=== PATIENT | female | born 1960 | race Two or more races ===

== ENCOUNTER 2024-07-18 11:34 | Emergency (ER) | payer MEDICARE, MEDICAID ==
[~2024-07-18] VITALS: Ht 162.6 cm; Wt 86.0 kg
--- NOTE | 2024-07-18 12:57 | ED.PDOC ---
History of Present Illness HPI Comments 64 year old female presents to the ED with a chief complaint of picc line removal onset today (07/18/24).Patient states she had a picc line placed on chest, finished 6 weeks of antibiotics. Home health nurse told patient to come to ED for Picc line removal. Patient denies any chest pain, shortness of breath, nausea, vomiting, diarrhea, fever, chills, abdominal pain. No other symptoms or modifying factors present at this time. Chief Complaint: Tube Replacement Time Seen by MD: 12:41 Primary Care Provider: juan pablo Coronel Notes: Medications, Allergies Allergies: Coded Allergies: Codeine (Verified Allergy, Unknown, 07/18/24) Information Source: Patient Mode of Arrival: Ambulatory Severity: Moderate Timing: Hours Duration: Since onset Prehospital treatment: None Past Medical History PAST MEDICAL HISTORY: Denies Surgical History: Denies all surgeries SOCIAL SCIENCE ANALYST History: No Pertinent SOCIAL SCIENCE ANALYST History Family History Family History: Reviewed,noncontributory to illness, No family hx of Cancer, No family hx of DM, No family hx of Heart leonid, No family hx of HTN, No family hx ofKidney leonid, No family hx of Liver leonid, No family hx of Lung leonid, No family hx of Stroke Social History Smoker: Non-Smoker Alcohol: Denies ETOH Use Drugs: Denies Drug Use Lives In: Home Constitutional: reports: others (chest picc line); denies: chills, diaphoresis, fatigue, fever, malaise, sweats, weakness EENTM: denies: blurred vision, double vision, ear bleeding, ear discharge, ear drainage, ear pain, ear ringing, eye pain, eye redness, hearing loss, mouth pain, mouth swelling, nasal discharge, nose bleeding, nose congestion, nose pain, photophobia, tearing, throat pain, throat swelling, voice changes, others Respiratory: denies: cough, hemoptysis, orthopnea, SOB at rest, shortness of breath, SOB with excertion, stridor, wheezing, others Cardiovascular: denies: chest pain, dizzy spells, diaphoresis, Dyspnea on exertion, edema, irregular heart beat, left arm pain, lightheadedness, palpitations, PND, syncope, others Gastrointestinal: denies: abdomen distended, abdominal pain, blood streaked bowels, constipated, diarrhea, dysphagia, difficulty swallowing, hematemesis, melena, nausea, poor appetite, poor fluid intake, rectal bleeding, rectal pain, vomiting, others Genitourinary: denies: abnormal vagina bleeding, burning, dyspareunia, dysuria, flank pain, frequency, hematuria, incontinence, pain, , vagina discharge, urgency, others Neurological: denies: dizziness, fainting, headache, left sided numbness, left sided weakness, numbness, paresthesia, pre-existing deficit, right sided numbness, right sided weakness, seizure, speech problems, tingling, tremors, weakness, others Musculoskeletal: denies: back pain, gout, joint pain, joint swelling, muscle pain, muscle stiffness, neck pain, others Integumetry: denies: bruises, change in color, change in hair/nails, dryness, laceration, lesions, lumps, rash, wounds, others Allergic/Immunocompromised: denies: Difficulty Healing, Frequent Infections, Hives, Itching, others Hematologic/Lymphatic: denies: anemia, blood clots, easy bleeding, easy bruising, swollen glands, others Endocrine: denies: excessive hunger, excessive sweating, excessive thirst, excessive urination, flushing, intolerance to cold, intolerance to heat, unexplained weight gain, unexplained weight loss, others Psychiatric: denies: anxiety, bipolar disorder, depression, hopeless, panic disorder, schizophrenia, sleepless, suicidal, others All Other Systems: Reviewed and Negative Physical Exam General Appearance: No Apparent Distress, Normal HEENT: Normal ENT Inspection, Pharynx Normal, TMs Normal Neck: Full Range of Motion, Non-Tender, Normal, Normal Inspection Respiratory: Chest Non-Tender, Lungs Clear, No Accessory Muscle Use, No Respiratory Distress, Normal Breath Sounds Cardiovascular: No Edema, No JVD, No Murmur, No Gallop, Normal Peripheral Pulses, Regular Rate/Rhythm Breast Exam: Deferred Gastrointestinal: No Organomegaly, Non Tender, No Pulsatile Mass, Normal Bowel Sounds, Soft Genitalia: Deferred Pelvic: Deferred Rectal: Deferred Extremities: No calf tenderness, Normal capillary refill, Normal inspection, Normal range of motion, Non-tender, No pedal edema Musculoskeletal : Apperance: Normal Neurologic: Alert, quality assurance analyst II-XII nml as Tested, No Motor Deficits, Normal Affect, Normal Mood, No Sensory Deficits Cerebellar Function: Normal Reflexes: Normal Skin: Dry, Normal Color, Warm Lymphatic: No Adenopathy Was a procedure done? Was a procedure done?: No Differential Dx Considerations may include: Line malfunction X-Ray, Labs, Meds, VS Vital Signs Date Time Temp Pulse Resp B/P (MAP) Pulse Ox O2 Delivery O2 Flow Rate FiO2 07/18/24 11:49 98.1 82 17 143/53 (83) 98 98.1 [place] [id number] Ph: [phone] DIAGNOSTIC IMAGING Diagnostic Imaging Report : [id number] Signed PATIENT: AFSANEH MCCONNELL ACCT: [id number] UNIT: [id number] : 1960 LOC: ER ROOM / BED: / AGE / SEX: 64 / F ADM STATUS: REG ER SERVICE 1248 ORDERING PHYSICIAN: ADELA DALLAS MD PROCEDURE(s): CXRP - CHEST PORTABLE REASON: picc line placement ORDER NUMBER(s): [id number], ACCESSION NUMBER(s): [id number] AP portable chest HISTORY: picc line placement Comparison: None FINDINGS: There is a PICC line with its tip in the lower 3rd of the superior vena cava. Heart size slightly enlarged. Pacer leads in the right atrium and right ventricle. No infiltrates or effusions IMPRESSION: 1. PICC line catheter tip in the lower 3rd of the superior vena cava ATED BY: MIRIAN REZA MD DICTATED DATE/TIME: 07/18/241315 SIGNED BY: MIRIAN REZA MD SIGNED DATE/TIME: 07/18/241315 CC: Time of 1ST Reevaluation: 13:11 Reevaluation 1ST: Unchanged Patient Education/Counseling: Diagnosis, Treatment, Prognosis Family Education/Counseling: No Family Present Additional Information The following tests were ordered, and results were reviewed by me: SHIVAM chest portable I reviewed and agreed with the following test results read by other providers: SHIVAM chest portable I discussed treatment and results with medical personnel and: patient Comprehensive systems review obtained and negative except for what is stated in the HPI. Departure 1 Departure Time of Disposition: 13:56 (Patient's line was removed and radiology. We will discharge patient home with outpatient follow up) Impression: Primary Impression: Encounter for removal of tunneled central venous catheter (CVC) with port Disposition: 01 HOME / SELF CARE / HOMELESS Condition: Stable Additional Instructions: Your IV line was removed today. Please follow up with the regular doctor Discharged With: Self Critical Care Note Critical Care Time?: No Stability Stability form required: No I personally scribed for ADELA DALLAS MD ([email or web address]) on 07/18/24 at 12:57. Electronically submitted by Gerda Bartholomew ([email or web address]). I personally scribed for ADELA DALLAS MD ([email or web address]) on 07/18/24 at 13:15. Electronically submitted by Gerda Bartholomew ([email or web address]). I personally scribed for ADELA DALLAS MD ([email or web address]) on 07/18/24 at 13:45. Electronically submitted by Gerda Bartholomew ([email or web address]). ADELA DALLAS MD July 18, 2024 12:57
--- NOTE | 2024-07-18 13:18 | DVH ---
AP portable chest HISTORY: picc line placement Comparison: None FINDINGS: There is a PICC line with its tip in the lower 3rd of the superior vena cava. Heart size slightly enlarged. Pacer leads in the right atrium and right ventricle. No infiltrates or effusions IMPRESSION: 1. PICC line catheter tip in the lower 3rd of the superior vena cava
[2024-07-18] MEDS: LIDOCAINE 2%HCL (LOCAL ANESTH.) INJ 10ml MDV ONE (13:32)
[2024-07-18 14:30] VITALS: BP 143/53; PULSE 82; RESP 18; TEMP 98.1; O2SAT 98
== END 2024-07-18 14:31 | disposition home or self-care (01) ==
LOC: ER 11:34
DX: Z45.2 Encounter for adjustment and management of vascular access device (principal); Z88.5 Allergy status to narcotic agent
CPT/HCPCS: 71045; 99283; J2003

== ENCOUNTER 2025-02-23 13:07 | Inpatient (IN) | payer MEDICARE, MEDICAID ==
[~2025-02-23] VITALS: Ht 162.6 cm; Wt 89.0 kg
[2025-02-23] MEDS: SODIUM CHLORIDE 0.9% 500 ML IVB ONE (14:15)
--- NOTE | 2025-02-23 14:28 | ED.PDOC ---
KIRAN Lyons HPI Comments 64y F who presents to the ED for chief complaint of flank pain. Pt states she has been having R sided flank pain for the past 3x days. Pt states the pain is constant, rating the pain 7/10, aching in nature, with no noted exacerbating or relieving factors. Pt has associated headache, nausea, chills diarrhea and dysuria but denies any other symptoms. Pt otherwise has noted temp of 99.6 F and heart rate 102 with otherwise stable vitals. Pt denies any other symptoms at this time. Chief Complaint: Flank Pain Time Seen by MD: 14:24 Primary Care Provider: juan pablo Reviewed notes: Nurses Notes, Medications, Allergies Allergies: Coded Allergies: Codeine (Verified Allergy, Unknown, 07/18/24) Information Source: Patient Mode of Arrival: Ambulatory Brought in by: self Severity: Moderate Inability to void: None Timing: Hours Duration: Since onset Prehospital treatment: None Onset: Spontaneous Symptoms: Dysuria History of: None Location: (R) Flank Modifying factors: None associated signs and symptoms: Nausea, Flank Pain, Dysuria Past Medical History PAST MEDICAL HISTORY: DM, High Lipids, HTN Surgical History (Other): R kidney transplant VEGETABLE CUTTER History: No Pertinent VEGETABLE CUTTER History Family History Family History: Reviewed,noncontributory to illness, No family hx of Heart leonid, No family hx of HTN, No family hx ofKidney leonid, No family hx of Liver leonid, No family hx of Lung leonid, No family hx of Stroke, Family hx of DM, Family hx of Cancer Social History Smoker: Non-Smoker Alcohol: Denies ETOH Use Drugs: Denies Drug Use Lives In: Home Constitutional: reports: chills; denies: diaphoresis, fatigue, fever, malaise, sweats, weakness, others EENTM: denies: blurred vision, double vision, ear bleeding, ear discharge, ear drainage, ear pain, ear ringing, eye pain, eye redness, hearing loss, mouth pain, mouth swelling, nasal discharge, nose bleeding, nose congestion, nose pain, photophobia, tearing, throat pain, throat swelling, voice changes, others Respiratory: denies: cough, hemoptysis, orthopnea, SOB at rest, shortness of breath, SOB with excertion, stridor, wheezing, others Cardiovascular: denies: chest pain, dizzy spells, diaphoresis, Dyspnea on exert ion, edema, irregular heart beat, left arm pain, lightheadedness, palpitations, PND, syncope, others Gastrointestinal: reports: diarrhea, nausea; denies: abdomen distended, abdominal pain, blood streaked bowels, constipated, dysphagia, difficulty swallowing, hematemesis, melena, poor appetite, poor fluid intake, rectal bleeding, rectal pain, vomiting, others Genitourinary: reports: flank pain; denies: abnormal vagina bleeding, burning, dyspareunia, dysuria, frequency, hematuria, incontinence, pain, , vagina discharge, urgency, others Neurological: denies: dizziness, fainting, headache, left sided numbness, left sided weakness, numbness, paresthesia, pre-existing deficit, right sided numbness, right sided weakness, seizure, speech problems, tingling, tremors, weakness, others Musculoskeletal: denies: back pain, gout, joint pain, joint swelling, muscle pa in, muscle stiffness, neck pain, others Integumetry: denies: bruises, change in color, change in hair/nails, dryness, laceration, lesions, lumps, rash, wounds, others Allergic/Immunocompromised: denies: Difficulty Healing, Frequent Infections, Hives, Itching, others Hematologic/Lymphatic: denies: anemia, blood clots, easy bleeding, easy bruising, swollen glands, others Endocrine: denies: excessive hunger, excessive sweating, excessive thirst, excessive urination, flushing, intolerance to cold, intolerance to heat, unexplained weight gain, unexplained weight loss, others Psychiatric: denies: anxiety, bipolar disorder, depression, hopeless, panic disorder, schizophrenia, sleepless, suicidal, others All Other Systems: Reviewed and Negative Physical Exam General Appearance: Moderate Distress HEENT: Normal ENT Inspection, Pharynx Normal, TMs Normal Neck: Full Range of Motion, Non-Tender, Normal, Normal Inspection Respiratory: Chest Non-Tender, Lungs Clear, No Accessory Muscle Use, No Respiratory Distress, Normal Breath Sounds Cardiovascular: No Edema, No JVD, No Murmur, No Gallop, Normal Peripheral Pulses, Regular Rate/Rhythm Breast Exam: Deferred Gastrointestinal: No Organomegaly, Non Tender, No Pulsatile Mass, Normal Bowel Sounds, Soft Genitalia: Deferred Pelvic: Deferred Rectal: Deferred Extremities: No calf tenderness, Normal capillary refill, Normal inspection, Normal range of motion, Non-tender, No pedal edema Musculoskeletal : Apperance: Normal Neurologic: Alert, needle control cheniller II-XII nml as Tested, No Motor Deficits, Normal Affect, Normal Mood, No Sensory Deficits Cerebellar Function: Normal Reflexes: Normal Skin: Dry, Normal Color, Warm Lymphatic: No Adenopathy Was a procedure done? Was a procedure done?: No Differential Diagnosis Kidney stone (Female): Cholelithiasis, Pyelonephritis, Strain, Urinary obstruction, Urolithiasis Urinary Problem (Female): PID, Pyelonephritis, Urinary retention, UTI, Vaginitis X-Ray, Labs, Meds, VS Vital Signs Date Time Temp Pulse Resp B/P (MAP) Pulse Ox O2 Delivery O2 Flow Rate FiO2 02/23/25 16:32 77 17 137/77 02/23/25 16:06 98 18 143/73 02/23/25 16:02 100.0 98 17 143/73 (96) 100 100.0 02/23/25 16:02 98 17 100 Room Air 02/23/25 13:10 99.6 102 22 148/55 98 99.6 Lab Test 02/23/25 16:12 02/23/25 15:50 02/23/25 14:47 Range/Units POC Glucose 441 *H 70-106 mg/dl Urine Color Light-yellow Yellow Urine Clarity Clear Clear Urine pH 5.5 5.0-9.0 Urine Specific [place] 1.020 1.001-1.035 Urine Protein Trace H Negative Urine Ketones Negative Negative Urine Blood 3+ H Negative /uL Urine Nitrite 1+ H Negative Urine Bilirubin Negative Negative Urine Urobilinogen Normal Negative mg/dL Urine Leukocyte Esterase Negative Negative /uL Urine RBC 22 0 - 4 /hpf Urine Microscopic WBC 9 H 0-5 /HPF Urine Squamous Epithelial Cells Mod <5 /hpf Urine Bacteria Few H None Seen /hpf Urine Glucose 4+ H Normal mg/dL White Blood Count 11.5 H 4.4-10.8 10^3/uL Red Blood Count 3.76 L 4.0-5.20 10^6/uL Hemoglobin 10.8 L 12.2-16.2 g/dL Hematocrit 33.7 L 36.0-46.0 % Mean Corpuscular Volume 89.6 80.0-100.0 fL Mean Corpuscular Hemoglobin 28.8 28.0-32.0 pg Mean Corpuscular Hemoglobin Concent 32.1 32.0-36.0 g/dL Red Cell Distribution Width 14.7 H 11.8-14.3 % Platelet Count 206 140-450 10^3/uL Mean Platelet Volume 8.7 6.9-10.8 fL Neutrophils (%) (Auto) 90.5 H 37.0-80.0 % Lymphocytes (%) (Auto) 5.2 L 10.0-50.0 % Monocytes (%) (Auto) 4.1 0.0-12.0 % Eosinophils (%) (Auto) 0.0 0.0-7.0 % Basophils (%) (Auto) 0.2 0.0-2.0 % Neutrophils # (Auto) 10.4 H 1.6-8.6 10 ^3/uL Lymphocytes # (Auto) 0.6 0.4-5.4 10 ^3/uL Monocytes # (Auto) 0.5 0-1.3 10 ^3/uL Eosinophils # (Auto) 0 0-0.8 10 ^3/uL Basophils # (Auto) 0 0-0.2 10 ^3/uL Nucleated Red Blood Cells 0.0 % Sodium Level 128 L 136-145 mmol/L Potassium Level 4.4 3.5-5.1 mmol/L Chloride Level 96 L 98-107 mmol/L Carbon Dioxide Level 21 20-31 mmol/L Anion Gap 11 5-15 Blood Urea Nitrogen 27 H 9-23 mg/dL Creatinine 1.40 H 0.550-1.02 mg/dL Glomerular Filtration Rate Calc 42 >90 mL/min BUN/Creatinine Ratio 19.3 10.0-20.0 Serum Glucose 524 *H 74-106 mg/dL Calcium Level 8.7 8.7-10.4 mg/dL Current Medications Medications (Trade) Dose Ordered Sig/Rhoda Route Start Time Stop Time Status Last Admin Ondansetron HCl (Zofran) 4 mg ONCE ONCE IV 02/23/25 14:15 02/23/25 14:16 DC 02/23/25 16:04 Morphine Sulfate 4 mg ONCE ONCE IV 02/23/25 14:15 02/23/25 14:16 DC 02/23/25 16:06 Sodium Chloride 500 ml @ 500 mls/hr Q1H ONCE IVB 02/23/25 14:15 02/23/25 15:14 DC 02/23/25 14:15 Insulin Human Regular (InsuLIN R) 5 units ONCE ONCE IV 02/23/25 16:00 02/23/25 16:01 DC 02/23/25 16:21 PROCEDURE(s): ABPL - CT AB PEL WO CON-NO ORAL OR IV IMPRESSION: Right lower quadrant transplant kidney without hydronephrosis ; however, there is mild perinephric stranding. This could be infectious / inflammatory. Consider transplant renal ultrasound for further evaluation. IV Hep-Lock was established The patient was given morphine 4 mg IV push for the pain The patient was given Zofran 4 mg IV push for the nausea The patient is hyperglycemic and was given insulin 5 units IV push The patient's glucose serum was 524 The BUN is 27 the creatinine is 1.4 The CBC shows an elevated white blood cell count of 11.5 The urine test is positive for UTI The patient is also being started on Rocephin IV piggyback for the UTI The patient is being admitted Images Reviewed?: Images reviewed and evaluated by me Time of 1ST Reevaluation: 15:00 Reevaluation 1ST: Unchanged Patient Education/Counseling: Diagnosis, Treatment, Prognosis Family Education/Counseling: No Family Present SEPSIS Sepsis Screen Date sepsis recognized/suspect: Feb 23, 2025 Time Sepsis recognized/suspect: 1312 Recent Procedure: No On Antibiotic Therapy: No Respiratory Rate >20: No Heart Rate >90: No Temp<36 C (96.8 F) or >38.3 C: No SBP <90 or MAP <65 mmHG: No New Acute Mental Status Change: No Is the patient on CPAP, BIPAP,: No Physician Orders Ct Ab Pel Wo Con-No Oral Or Iv (02/23/25 14:07) Heplock Iv (02/23/25 14:07) Top Precipitator Operator (02/23/25 14:07) Blood Pressure (02/23/25 14:07) Pulse Oximetry (02/23/25 14:07) Vital Signs Date Time Temp Pulse Resp B/P (MAP) Pulse Ox O2 Delivery O2 Flow Rate FiO2 02/23/25 16:32 77 17 137/77 02/23/25 16:06 98 18 143/73 02/23/25 16:02 100.0 98 17 143/73 (96) 100 100.0 02/23/25 16:02 98 17 100 Room Air 02/23/25 13:10 99.6 102 22 148/55 98 99.6 Laboratory Tests Test 02/23/25 14:47 White Blood Count 11.5 10^3/uL (4.4-10.8) H Medications Medications Dose Ordered Sig/Rhoda Route Start Time Stop Time Status Last Admin Dose Admin Insulin Human Regular 5 units ONCE ONCE IV 02/23/25 16:00 02/23/25 16:01 DC 02/23/25 16:21 Morphine Sulfate 4 mg ONCE ONCE IV 02/23/25 14:15 02/23/25 14:16 DC 02/23/25 16:06 Ondansetron HCl 4 mg ONCE ONCE IV 02/23/25 14:15 02/23/25 14:16 DC 02/23/25 16:04 Sodium Chloride 500 ml @ 500 mls/hr Q1H ONCE IVB 02/23/25 14:15 02/23/25 15:14 DC 02/23/25 14:15 Departure 1 Departure Time of Disposition: 16:54 Impression: Primary Impression: Intractable abdominal pain Additional Impressions: UTI (urinary tract infection) Qualified Codes: N30.00 - Acute cystitis without hematuria Uncontrolled diabetes mellitus Qualified Codes: E13.65 - Other specified diabetes mellitus with hyperglycemia Disposition: ADMITTED INPATIENT Admit to: Med Surg Condition: Fair Critical Care Note Critical Care Time?: No Stability Stability form required: Yes Unstable for transfer: ED Physician Assesment (Clinical assesment) Heart Score Heart Score: Heart Score Response (Comments) Value History N/A 0 EKG N/A 0 Age N/A 0 Risk Factors N/A 0 Troponin N/A 0 Total 0 I personally scribed for DAKOTA SHAW MD ([email or web address]) on 02/23/25 at 14:28. Electronically submitted by Royce Downs ([email or web address]). I personally scribed for DAKOTA SHAW MD ([email or web address]) on 02/23/25 at 15:03. Electronically submitted by Royce Downs ([email or web address]). I personally scribed for DAKOTA SHAW MD ([email or web address]) on 02/23/25 at 15:09. Electronically submitted by Royce Downs ([email or web address]). DAKOTA SHAW MD Feb 23, 2025 14:28
[2025-02-23 14:56] LABS: Hematocrit 33.7 % (36.0-46.0); Hemoglobin 10.8 g/dL (12.2-16.2); Mean Corpuscular Hemoglobin 28.8 pg (28.0-32.0); Mean Corpuscular Volume 89.6 fL (80.0-100.0); Nucleated Red Blood Cells % 0.0 %
--- NOTE | 2025-02-23 14:59 | DVH ---
EXAM: CT CT AB PEL WO CON-NO ORAL OR IV HISTORY: right flank pain Comparison Study: None. Exam Date: 02/23/2025 02:20 PM Radiation Dose Information: CT Dose: CTDI volume is 17 mGy. Dose-length product is 966 mGy*cm TECHNIQUE: Multidetector CT of the abdomen and pelvis was performed. Imaging was performed without IV contrast. Axial, coronal and sagittal multiplanar reformats were obtained from the axial data set by the technologist. FINDINGS: Lack of intravenous contrast compromises evaluation of perfusion and for isodense lesions. Lower chest: Clear. Liver: Postsurgical clips seen adjacent to the liver; correlate for possible liver transplant history. Biliary system: Surgically absent gallbladder Spleen: Unremarkable Pancreas: Diffusely atrophic. Adrenals: Unremarkable. Kidneys and ureters: Severe atrophy of the bilateral [place] kidneys. Right lower quadrant transplant kidney is seen without hydro nephrosis. There is nonspecific mild perinephric stranding. Bowel: No obstruction. Bladder: Unremarkable Reproductive organs: No abnormal mass. Lymph nodes: Unremarkable. Peritoneum: Unremarkable Vessels: Patency not evaluated on this noncontrast study. Bones and soft tissue: No aggressive osseous lesion IMPRESSION: Right lower quadrant transplant kidney without hydronephrosis ; however, there is mild perinephric stranding. This could be infectious / inflammatory. Consider transplant renal ultrasound for further evaluation.
[2025-02-23 15:07] LABS: Potassium 4.4 mmol/L (3.5-5.1)
[2025-02-23 15:08] LABS: Anion Gap 11 (5-15); Calcium 8.7 mg/dL (8.7-10.4); Carbon Dioxide 21 mmol/L (20-31)
[2025-02-23 15:13] LABS: BUN/Creatinine Ratio 19.3 (10.0-20.0)
[2025-02-23 15:19] LABS: Blood Urea Nitrogen 27 mg/dL (9-23); Chloride 96 mmol/L (98-107); Sodium 128 mmol/L (136-145)
[2025-02-23 15:20] LABS: Glucose 524 mg/dL (74-106)
[2025-02-23] MEDS: ONDANSETRON HCL 4 MG/2 ML VIAL IV ONE (16:04)
[2025-02-23] MEDS: MORPHINE SULFATE 4 MG/ML SYR/VIAL IV ONE (16:06)
[2025-02-23 16:17] LABS: Urine Protein, UAD TRACE (Negative)
[2025-02-23] MEDS: InsuLIN REG 1unit/0.01ml Soln (100units/ml) IV ONE (16:21)
--- NOTE | 2025-02-23 17:14 | DVHHP2 ---
Admitting Diagnosis: Abdominal pain History of Present Illness 64y F who presents to the ED for chief complaint of flank pain. Pt states she has been having R sided flank pain for the past 3x days. Pt states the pain is constant, rating the pain 7/10, aching in nature, with no noted exacerbating or relieving factors. Pt has associated headache, nausea, chills diarrhea and dysuria but denies any other symptoms. Pt otherwise has noted temp of 99.6 F and heart rate 102 with otherwise stable vitals. Pt denies any other symptoms at this time. 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 History Family History Family History: Reviewed,noncontributory to illness, No family hx of Heart leonid, No family hx of HTN, No family hx ofKidney leonid, No family hx of Liver leonid, No family hx of Lung leonid, No family hx of Stroke, Family hx of DM, Family hx of Cancer Social History Smoker: Non-Smoker Alcohol: Denies ETOH Use Drugs: Denies Drug Use Lives In: Home Allergies: Coded Allergies: Codeine (Verified Allergy, Unknown, 07/18/24) Current Medications Current Medications Medications (Trade) Dose Ordered Sig/Rhoda Route PRN Reason Start Time Stop Time Status Last Admin Sodium Chloride (Saline Lock Ns) 10 ml Q8HR IV 02/23/25 22:00 UNV Vital Signs Vital Signs Date Time Temp Pulse Resp B/P (MAP) Pulse Ox O2 Delivery O2 Flow Rate FiO2 02/23/25 16:32 77 17 137/77 02/23/25 16:02 100.0 100 100.0 02/23/25 16:02 Room Air Physical Exam Generally 64 years old woman overweight, sitting on chair. Mild distress HEENT-atraumatic normocephalic Heart-regular rate and rhythm Lungs clear to auscultate Abdomen soft, nontender nondistended Musculoskeletal-no edema cyanosis Neuro-AO x3, no deficit SEPSIS Sepsis Screen Date sepsis recognized/suspect: Feb 23, 2025 Time Sepsis recognized/suspect: 1312 Recent Procedure: No On Antibiotic Therapy: No Respiratory Rate >20: No Heart Rate >90: No Temp<36 C (96.8 F) or >38.3 C: No SBP <90 or MAP <65 mmHG: No New Acute Mental Status Change: No Is the patient on CPAP, BIPAP,: No Physician Orders Ct Ab Pel Wo Con-No Oral Or Iv (02/23/25 14:07) Heplock Iv (02/23/25 14:07) Central Office Supervisor (02/23/25 14:07) Blood Pressure (02/23/25 14:07) Pulse Oximetry (02/23/25 14:07) Admit (02/23/25 17:08) Code Status (02/23/25 17:08) Vital Signs .PER UNIT PROTOCOL (02/23/25 17:08) Review Orders With Adm. (02/23/25 17:08) Encourage Activity As Tolerate (02/23/25 17:08) Sodium Chloride Lock (Saline Lock Ns) (02/23/25 22:00) Docusate Sodium Capsule (Colace Capsule) (02/23/25 17:15) Acetaminophen Tablet (Tylenol Tablet) (02/23/25 17:15) Notify Md Of Changes From Base (02/23/25 17:08) Advance Directive (02/23/25 17:08) Patient Condition (02/23/25 17:08) Allergies (02/23/25 17:08) Glucose Blood (Accu-Chek Comfort Curve T (02/23/25 22:00) Mild Sliding Scale (02/23/25 22:00) Dextrose 50% Syringe (02/23/25 17:15) Zosyn Extended Infusion (02/23/25 22:00) *[facility] (02/23/25 17:08) Get List Of Home Medications (02/23/25 17:11) Vital Signs Date Time Temp Pulse Resp B/P (MAP) Pulse Ox O2 Delivery O2 Flow Rate FiO2 02/23/25 16:32 77 17 137/77 02/23/25 16:06 98 18 143/73 02/23/25 16:02 100.0 98 17 143/73 (96) 100 100.0 02/23/25 16:02 98 17 100 Room Air 02/23/25 13:10 99.6 102 22 148/55 98 99.6 Laboratory Tests Test 02/23/25 14:47 White Blood Count 11.5 10^3/uL (4.4-10.8) H Medications Medications Dose Ordered Sig/Rhoda Route Start Time Stop Time Status Last Admin Dose Admin Insulin Human Regular 5 units ONCE ONCE IV 02/23/25 16:00 02/23/25 16:01 DC 02/23/25 16:21 Morphine Sulfate 4 mg ONCE ONCE IV 02/23/25 14:15 02/23/25 14:16 DC 02/23/25 16:06 Ondansetron HCl 4 mg ONCE ONCE IV 02/23/25 14:15 02/23/25 14:16 DC 02/23/25 16:04 Sodium Chloride 500 ml @ 500 mls/hr Q1H ONCE IVB 02/23/25 14:15 02/23/25 15:14 DC 02/23/25 14:15 Results Labs Test 02/23/25 16:12 02/23/25 15:50 02/23/25 14:47 Range/Units POC Glucose 441 *H 70-106 mg/dl Urine Color Light-yellow Yellow Urine Clarity Clear Clear Urine pH 5.5 5.0-9.0 Urine Specific [place] 1.020 1.001-1.035 Urine Protein Trace H Negative Urine Ketones Negative Negative Urine Blood 3+ H Negative /uL Urine Nitrite 1+ H Negative Urine Bilirubin Negative Negative Urine Urobilinogen Normal Negative mg/dL Urine Leukocyte Esterase Negative Negative /uL Urine RBC 22 0 - 4 /hpf Urine Microscopic WBC 9 H 0-5 /HPF Urine Squamous Epithelial Cells Mod <5 /hpf Urine Bacteria Few H None Seen /hpf Urine Glucose 4+ H Normal mg/dL White Blood Count 11.5 H 4.4-10.8 10^3/uL Red Blood Count 3.76 L 4.0-5.20 10^6/uL Hemoglobin 10.8 L 12.2-16.2 g/dL Hematocrit 33.7 L 36.0-46.0 % Mean Corpuscular Volume 89.6 80.0-100.0 fL Mean Corpuscular Hemoglobin 28.8 28.0-32.0 pg Mean Corpuscular Hemoglobin Concent 32.1 32.0-36.0 g/dL Red Cell Distribution Width 14.7 H 11.8-14.3 % Platelet Count 206 140-450 10^3/uL Mean Platelet Volume 8.7 6.9-10.8 fL Neutrophils (%) (Auto) 90.5 H 37.0-80.0 % Lymphocytes (%) (Auto) 5.2 L 10.0-50.0 % Monocytes (%) (Auto) 4.1 0.0-12.0 % Eosinophils (%) (Auto) 0.0 0.0-7.0 % Basophils (%) (Auto) 0.2 0.0-2.0 % Neutrophils # (Auto) 10.4 H 1.6-8.6 10 ^3/uL Lymphocytes # (Auto) 0.6 0.4-5.4 10 ^3/uL Monocytes # (Auto) 0.5 0-1.3 10 ^3/uL Eosinophils # (Auto) 0 0-0.8 10 ^3/uL Basophils # (Auto) 0 0-0.2 10 ^3/uL Nucleated Red Blood Cells 0.0 % Sodium Level 128 L 136-145 mmol/L Potassium Level 4.4 3.5-5.1 mmol/L Chloride Level 96 L 98-107 mmol/L Carbon Dioxide Level 21 20-31 mmol/L Anion Gap 11 5-15 Blood Urea Nitrogen 27 H 9-23 mg/dL Creatinine 1.40 H 0.550-1.02 mg/dL Glomerular Filtration Rate Calc 42 >90 mL/min BUN/Creatinine Ratio 19.3 10.0-20.0 Serum Glucose 524 *H 74-106 mg/dL Calcium Level 8.7 8.7-10.4 mg/dL Primary Diagnosis acute pyelonephritis SAAD on CKD Plan start zosyn for broad spectrum abx check bcx, ucx ivf pain control nephrology consult for saad on ckd home med reconsciliation full code heparin for dvt ppx renal diet no gi ppx Plan discussed with: Patient Date of Service: Feb 23, 2025 Billing Provider: KRISTINA MENDES MD Common Visit Codes: [id number] INP/OBS CARE (HIGH) KRISTINA MENDES MD Feb 23, 2025 17:14
[2025-02-23] MEDS ORDERED: DEXTROSE (50%) 50ML SYRG IV PRN (17:15)
[2025-02-23] MEDS ORDERED: DOCUSATE SOD 100 MG CAP PO PRN (17:15)
[2025-02-23] MEDS: ACETAMINOPHEN 325 MG TAB PO PRN (20:54)
[2025-02-23 21:15] VITALS: BP 148/66; PULSE 87; RESP 20; TEMP 99.8; O2SAT 95
[2025-02-23 21:45] VITALS: BP 148/66; PULSE 87; RESP 20; TEMP 99.8; O2SAT 95
[2025-02-23] MEDS: PIPERACILLIN-TAZOB 3.375GM 100 ML IV SCH (22:52)
[2025-02-23] MEDS: SODIUM CHLOR 0.9% PF (SALINE LOCK) 10ML VIAL/SYR IV SCH (22:52)
[2025-02-23] MEDS: ACCU-CHEK COMFORT CURVE STRIP VI SCH (22:57)
[2025-02-23] MEDS: InsuLIN REG 1unit/0.01ml Soln (100units/ml) SC SCH (22:59)
[2025-02-24] VITALS (8 sets, daily range): BP systolic 146–188; BP diastolic 62–86; PULSE 83–93; RESP 17–19; TEMP 97.7–99.7; O2SAT 20–98
[2025-02-24 06:17] LABS: Hematocrit 32.9 % (36.0-46.0); Hemoglobin 10.7 g/dL (12.2-16.2); Mean Corpuscular Hemoglobin 28.8 pg (28.0-32.0); Mean Corpuscular Volume 88.6 fL (80.0-100.0); Nucleated Red Blood Cells % 0.1 %
[2025-02-24 06:36] LABS: Albumin 3.8 g/dL (3.2-4.8); Anion Gap 12 (5-15); BUN/Creatinine Ratio 21.3 (10.0-20.0); Carbon Dioxide 21 mmol/L (20-31); Chloride 103 mmol/L (98-107); Potassium 4.3 mmol/L (3.5-5.1); Total Protein 6.2 g/dL (5.7-8.2)
[2025-02-24 06:41] LABS: Alanine Aminotransferase 55 U/L (7-40); Alkaline Phosphatase 208 U/L (46-116); Bilirubin, Total 0.3 mg/dL (0.2-1.0); Blood Urea Nitrogen 23 mg/dL (9-23); Calcium 8.4 mg/dL (8.7-10.4); Glucose 212 mg/dL (74-106); Sodium 136 mmol/L (136-145)
--- NOTE | 2025-02-24 13:49 | DVHPN2 ---
Reviewed: Care Plan, H&P, Labs, Medications, Previous Orders, Radiology Changes from previous H/P or p: No Changes Objective Vitals Vital Signs Date Time Temp Pulse Resp B/P (MAP) Pulse Ox O2 Delivery O2 Flow Rate FiO2 02/24/25 09:00 98.9 91 19 148/62 (90) 93 98.9 02/24/25 08:00 Nasal Cannula* 1 24 Intake/Output Intake and Output 02/24/25 07:00 Intake Total 600 ml Balance 600 ml Intake Oral 0 ml IV Total 600 ml # Voids 2 Medications Current Medications Medications Dose Ordered Sig/Rhoda Route Start Time Stop Time Status Last Admin Dose Admin Sodium Chloride 10 ml Q8HR IV 02/23/25 22:00 02/24/25 06:30 10 ML Docusate Sodium 100 mg BIDPRN PRN PO 02/23/25 17:15 Acetaminophen 650 mg Q6HP PRN PO 02/23/25 17:15 02/24/25 06:29 650 MG Diagnostic Test (Pha) 1 strip ACHS 02/23/25 22:00 02/24/25 13:01 1 STRIP Insulin Human Regular ACHS SC 02/23/25 22:00 02/24/25 13:02 6 UNITS Dextrose 50 ml UD PRN IV 02/23/25 17:15 Piperacillin Sod/ Tazobactam Sod 100 ml @ 25 mls/hr Q8HR IV 02/23/25 22:00 02/24/25 06:19 25 MLS/HR Laboratory Results Laboratory Tests 02/24/25 05:40 Chemistry Test 02/23/25 14:47 02/24/25 05:40 Calcium Level 8.7 mg/dL (8.7-10.4) 8.4 mg/dL (8.7-10.4) L Albumin 3.8 g/dL (3.2-4.8) Total Protein 6.2 g/dL (5.7-8.2) LFT Test 02/24/25 05:40 Alanine Aminotransferase (ALT) 55 U/L (7-40) H Alkaline Phosphatase 208 U/L (46-116) H Aspartate Amino Transferase (AST) 64 U/L (13-40) H Total Bilirubin 0.3 mg/dL (0.2-1.0) Urinalysis Test 02/23/25 15:50 Urine Color Light-yellow (Yellow) Urine Clarity Clear (Clear) Urine pH 5.5 (5.0-9.0) Urine Specific [place] 1.020 (1.001-1.035) Urine Protein Trace (Negative) H Urine Ketones Negative (Negative) Urine Blood 3+ /uL (Negative) H Urine Nitrite 1+ (Negative) H Urine Bilirubin Negative (Negative) Urine Urobilinogen Normal mg/dL (Negative) Urine Leukocyte Esterase Negative /uL (Negative) Urine RBC 22 /hpf (0 - 4) Urine Microscopic WBC 9 /HPF (0-5) H Urine Squamous Epithelial Cells Mod /hpf (<5) Urine Bacteria Few /hpf (None Seen) H Urine Glucose 4+ mg/dL (Normal) H Labs and/or images reviewed: Labs reviewed by me, Image(s) reviewed by me Assessment/Plan Assessment/Plan Sepsis secondary to urinary tract infection: Blood cultures urine cultures Rocephin Acute hyperglycemia Uncontrolled diabetes with blood sugar 580: Aggressive insulin sliding scale check A1c Acute pyelonephritis SAAD on CKD History of Renal transplant Time spent 70 minutes Advanced care planning time 20 minutes Patient is full code Plan discussed with: Patient My Orders Orders - ATIYA PAPPAS MD Procedure Category Date Status Time * Wound Consult CONS 02/24/25 Transmitted Hemoglobin A1c LAB 02/24/25 Transmitted 13:39 Ceftriaxone Ivpb PHA 02/25/25 Verified Rocephin 09:00 Ceftriaxone Ivpb PHA 02/24/25 Verified Rocephin 13:45 Date of Service: Feb 24, 2025 Billing Provider: ATIYA PAPPAS MD Common Visit Codes: [id number] CARE 30-74 MIN ATIYA PAPPAS MD Feb 24, 2025 13:49
[2025-02-24] MEDS: SODIUM CHLORIDE 0.9% 1,000 ML IV SCH (15:25)
[2025-02-24] MEDS: InsuLIN REG 1unit/0.01ml Soln (100units/ml) SC SCH ×2 (17:37→22:00)
[2025-02-25] VITALS (8 sets, daily range): BP systolic 146–170; BP diastolic 71–81; PULSE 79–93; RESP 17–18; TEMP 97.7–99.8; O2SAT 92–98
[2025-02-25 06:12] LABS: Hematocrit 33.3 % (36.0-46.0); Hemoglobin 10.8 g/dL (12.2-16.2); Mean Corpuscular Hemoglobin 28.8 pg (28.0-32.0); Mean Corpuscular Volume 88.8 fL (80.0-100.0); Nucleated Red Blood Cells % 0.1 %
[2025-02-25 06:17] LABS: Alanine Aminotransferase 38 U/L (7-40); Calcium 8.8 mg/dL (8.7-10.4); Carbon Dioxide 23 mmol/L (20-31); Chloride 105 mmol/L (98-107)
[2025-02-25 06:18] LABS: Albumin 3.9 g/dL (3.2-4.8); Anion Gap 9 (5-15); BUN/Creatinine Ratio 16.0 (10.0-20.0); Bilirubin, Total 0.3 mg/dL (0.2-1.0); Blood Urea Nitrogen 15 mg/dL (9-23); Potassium 4.1 mmol/L (3.5-5.1); Sodium 137 mmol/L (136-145); Total Protein 6.7 g/dL (5.7-8.2)
[2025-02-25 06:19] LABS: Alkaline Phosphatase 181 U/L (46-116); Glucose 148 mg/dL (74-106)
--- NOTE | 2025-02-25 10:23 | DVHPN2 ---
Reviewed: Care Plan, H&P, Labs, Medications, Previous Orders, Radiology Changes from previous H/P or p: No Changes Objective Vitals Vital Signs Date Time Temp Pulse Resp B/P (MAP) Pulse Ox O2 Delivery O2 Flow Rate FiO2 02/25/25 09:00 99.7 91 17 161/77 (105) 94 99.7 02/25/25 08:05 Room Air* 0 21 Intake/Output Intake and Output 02/25/25 07:00 Intake Total 820 ml Balance 820 ml Intake Oral 770 ml IV Total 50 ml # Voids 10 Medications Current Medications Medications Dose Ordered Sig/Rhoda Route Start Time Stop Time Status Last Admin Dose Admin Sodium Chloride 10 ml Q8HR IV 02/23/25 22:00 02/25/25 05:17 10 ML Docusate Sodium 100 mg BIDPRN PRN PO 02/23/25 17:15 Acetaminophen 650 mg Q6HP PRN PO 02/23/25 17:15 02/25/25 09:21 650 MG Diagnostic Test (Pha) 1 strip ACHS 02/23/25 22:00 02/25/25 06:38 1 STRIP Dextrose 50 ml UD PRN IV 02/23/25 17:15 Ceftriaxone Sodium 50 ml @ 100 mls/hr DAILY@09 IV 02/25/25 09:00 02/25/25 09:13 100 MLS/HR Insulin Human Regular AC SC 02/24/25 17:00 02/25/25 06:38 4 UNITS Insulin Human Regular HS SC 02/24/25 22:00 Sodium Chloride 1,000 ml @ 150 mls/hr Q6H40M IV 02/24/25 14:00 02/24/25 15:25 150 MLS/HR Hydralazine HCl 10 mg Q6HP PRN IV 02/25/25 07:00 Laboratory Results Laboratory Tests 02/25/25 05:16 Chemistry Test 02/25/25 05:16 Albumin 3.9 g/dL (3.2-4.8) Calcium Level 8.8 mg/dL (8.7-10.4) Total Protein 6.7 g/dL (5.7-8.2) LFT Test 02/25/25 05:16 Alanine Aminotransferase (ALT) 38 U/L (7-40) Alkaline Phosphatase 181 U/L (46-116) H Aspartate Amino Transferase (AST) 20 U/L (13-40) Total Bilirubin 0.3 mg/dL (0.2-1.0) Urinalysis Test 02/23/25 15:50 Urine Color Light-yellow (Yellow) Urine Clarity Clear (Clear) Urine pH 5.5 (5.0-9.0) Urine Specific [place] 1.020 (1.001-1.035) Urine Protein Trace (Negative) H Urine Ketones Negative (Negative) Urine Blood 3+ /uL (Negative) H Urine Nitrite 1+ (Negative) H Urine Bilirubin Negative (Negative) Urine Urobilinogen Normal mg/dL (Negative) Urine Leukocyte Esterase Negative /uL (Negative) Urine RBC 22 /hpf (0 - 4) Urine Microscopic WBC 9 /HPF (0-5) H Urine Squamous Epithelial Cells Mod /hpf (<5) Urine Bacteria Few /hpf (None Seen) H Urine Glucose 4+ mg/dL (Normal) H Microbiology Microbiology Date/Time Source Procedure Growth Status 02/23/25 17:34 Blood Blood Culture - Preliminary NO GROWTH AFTER 24 HOURS OF INCUBATION. Resulted Labs and/or images reviewed: Labs reviewed by me, Image(s) reviewed by me Assessment/Plan Assessment/Plan Sepsis secondary to urinary tract infection: Blood cultures negative, urine cultures pending, continue Rocephin Acute hyperglycemia Uncontrolled diabetes with blood sugar 580: Aggressive insulin sliding scale check A1c Acute pyelonephritis SAAD on CKD Accelerated HTN:Nifedepine History of Renal transplant: Mycophenalate, Prednisone, Tacrolimus Time spent 50 minutes Advanced care planning time 20 minutes Patient is full code Plan discussed with: Patient My Orders Orders - ATIYA PAPPAS MD Procedure Category Date Status Time * Wound Consult CONS 02/24/25 Transmitted Ceftriaxone 1gm/50ml PHA 02/25/25 In Process (Rocephin) 09:00 Urine Bacterial GABBI 02/24/25 Logged Culture 13:42 Insulin R (Human) PHA 02/24/25 In Process (Insulin R) 17:00 Insulin R (Human) PHA 02/24/25 In Process (Insulin R) 22:00 Sodium Chloride 0.9% PHA 02/24/25 In Process 14:00 Communication Order ORDERS 02/24/25 Transmitted 13:50 Apply: JOHN 02/24/25 In Process 11:55 Date of Service: Feb 25, 2025 Billing Provider: ATIYA PAPPAS MD Common Visit Codes: [id number] INP/OBS CARE(HIGH) ATIYA PAPPAS MD Feb 25, 2025 10:23
[2025-02-25] MEDS: MYCOPHENOLATE 500 MG TAB PO ONE (11:22)
[2025-02-25] MEDS: TACROLIMUS 1 MG CAP PO ONE (11:23)
--- NOTE | 2025-02-25 13:07 | DVHINCON2 ---
Date of service: Feb 25, 2025 Referring Physician Tommy Reason for Consultation SAAD on CKD History of Present Illness 64-year-old female with past medical history of kidney transplant 2 years ago, type 2 diabetes, hypertension, hyperlipidemia. Patient presented with chief complaint of bilateral flank pain. Admitting diagnosis of acute pyelonephritis. Patient reports she follows up with [facility] kidney transplant team last follow-up was 2 days ago. Patient does not recall last eGFR or creatinine. Patient denies NSAID use. Reports diabetes x 42 years has not been well-controlled until recently. Reports blood pressures are well-controlled. Received consult for SAAD on CKD. Past Medical History kidney transplant 2 years ago, type 2 diabetes, hypertension, hyperlipidemia. Past Surgical History kidney transplant Allergies: Coded Allergies: Codeine (Verified Allergy, Unknown, 07/18/24) Home Meds Unable to Obtain Active Prescriptions or Reported Meds Current Medications Current Medications Medications (Trade) Dose Ordered Sig/Rhoda Route PRN Reason Start Time Stop Time Status Last Admin Ceftriaxone Sodium 50 ml @ 100 mls/hr DAILY@09 IV 02/25/25 09:00 02/25/25 09:13 Insulin Human Regular (InsuLIN R) HS SC 02/24/25 22:00 Hydralazine HCl (Apresoline Injection) 10 mg Q6HP PRN IV SBP>160 02/25/25 07:00 Nifedipine (Procardia Xl (Time-Release)) 60 mg BID PO 02/25/25 22:00 Prednisone 5 mg DAILY PO 02/26/25 10:00 Mycophenolate Mofetil (Cellcept) 500 mg BID PO 02/25/25 22:00 Tacrolimus (Prograf) 3 mg BID PO 02/25/25 22:00 Family History: Diabetes mellitus G8 MOTHER, G8 FATHER Hypertension G8 MOTHER, G8 FATHER Review of Systems 10 systems reviewed and negative except as per HPI H&P Exam Vital Signs/I&O Vital Sign Date Time Temp Pulse Resp B/P (MAP) Pulse Ox O2 Delivery O2 Flow Rate FiO2 02/25/25 17:00 98.9 82 18 156/80 (105) 96 98.9 02/25/25 08:05 Room Air* 0 21 Intake and Output 02/24/25 02/25/25 19:00 07:00 Intake Total 390 ml 430 ml Balance 390 ml 430 ml Intake Oral 340 ml 430 ml IV Total 50 ml # Voids 5 5 Physical Exam Gen: Appears stated age, NAD HEENT: PERRLA, mucous membranes moist Heart: RRR, normal S1 and S2 Lungs: Bilateral air entry, no rales Abd: Normoactive bowel sounds, soft, nontender, nondistended. Ext: No edema Neuro: alert and oriented x 4 Labs/Diagnostic Data Labs/Diagnostic Data Laboratory Tests Test 02/25/25 16:54 02/25/25 11:27 02/25/25 06:19 02/25/25 05:16 Range/Units POC Glucose 219 H 292 H 165 H 70-106 mg/dl White Blood Count 7.5 4.4-10.8 10^3/uL Red Blood Count 3.75 L 4.0-5.20 10^6/uL Hemoglobin 10.8 L 12.2-16.2 g/dL Hematocrit 33.3 L 36.0-46.0 % Mean Corpuscular Volume 88.8 80.0-100.0 fL Mean Corpuscular Hemoglobin 28.8 28.0-32.0 pg Mean Corpuscular Hemoglobin Concent 32.5 32.0-36.0 g/dL Red Cell Distribution Width 14.4 H 11.8-14.3 % Platelet Count 221 140-450 10^3/uL Mean Platelet Volume 8.6 6.9-10.8 fL Neutrophils (%) (Auto) 72.8 37.0-80.0 % Lymphocytes (%) (Auto) 15.6 10.0-50.0 % Monocytes (%) (Auto) 8.5 0.0-12.0 % Eosinophils (%) (Auto) 2.5 0.0-7.0 % Basophils (%) (Auto) 0.6 0.0-2.0 % Neutrophils # (Auto) 5.5 1.6-8.6 10 ^3/uL Lymphocytes # (Auto) 1.2 0.4-5.4 10 ^3/uL Monocytes # (Auto) 0.6 0-1.3 10 ^3/uL Eosinophils # (Auto) 0.2 0-0.8 10 ^3/uL Basophils # (Auto) 0 0-0.2 10 ^3/uL Nucleated Red Blood Cells 0.1 % Sodium Level 137 136-145 mmol/L Potassium Level 4.1 3.5-5.1 mmol/L Chloride Level 105 98-107 mmol/L Carbon Dioxide Level 23 20-31 mmol/L Anion Gap 9 5-15 Blood Urea Nitrogen 15 9-23 mg/dL Creatinine 0.94 0.550-1.02 mg/dL Glomerular Filtration Rate Calc 68 >90 mL/min BUN/Creatinine Ratio 16.0 10.0-20.0 Serum Glucose 148 H 74-106 mg/dL Calcium Level 8.8 8.7-10.4 mg/dL Total Bilirubin 0.3 0.2-1.0 mg/dL Aspartate Amino Transferase (AST) 20 13-40 U/L Alanine Aminotransferase (ALT) 38 7-40 U/L Alkaline Phosphatase 181 H 46-116 U/L Total Protein 6.7 5.7-8.2 g/dL Albumin 3.9 3.2-4.8 g/dL Test 02/24/25 21:44 02/24/25 16:58 02/24/25 12:19 02/24/25 05:53 Range/Units POC Glucose 128 H 307 H 278 H 199 H 70-106 mg/dl Test 02/24/25 05:40 02/23/25 22:56 02/23/25 16:12 02/23/25 15:50 Range/Units White Blood Count 9.3 4.4-10.8 10^3/uL Red Blood Count 3.71 L 4.0-5.20 10^6/uL Hemoglobin 10.7 L 12.2-16.2 g/dL Hematocrit 32.9 L 36.0-46.0 % Mean Corpuscular Volume 88.6 80.0-100.0 fL Mean Corpuscular Hemoglobin 28.8 28.0-32.0 pg Mean Corpuscular Hemoglobin Concent 32.5 32.0-36.0 g/dL Red Cell Distribution Width 14.6 H 11.8-14.3 % Platelet Count 190 140-450 10^3/uL Mean Platelet Volume 8.8 6.9-10.8 fL Neutrophils (%) (Auto) 81.5 H 37.0-80.0 % Lymphocytes (%) (Auto) 9.1 L 10.0-50.0 % Monocytes (%) (Auto) 8.1 0.0-12.0 % Eosinophils (%) (Auto) 0.9 0.0-7.0 % Basophils (%) (Auto) 0.4 0.0-2.0 % Neutrophils # (Auto) 7.6 1.6-8.6 10 ^3/uL Lymphocytes # (Auto) 0.8 0.4-5.4 10 ^3/uL Monocytes # (Auto) 0.8 0-1.3 10 ^3/uL Eosinophils # (Auto) 0.1 0-0.8 10 ^3/uL Basophils # (Auto) 0 0-0.2 10 ^3/uL Nucleated Red Blood Cells 0.1 % Sodium Level 136 # 136-145 mmol/L Potassium Level 4.3 3.5-5.1 mmol/L Chloride Level 103 98-107 mmol/L Carbon Dioxide Level 21 20-31 mmol/L Anion Gap 12 5-15 Blood Urea Nitrogen 23 9-23 mg/dL Creatinine 1.08 H 0.550-1.02 mg/dL Glomerular Filtration Rate Calc 57 >90 mL/min BUN/Creatinine Ratio 21.3 H 10.0-20.0 Serum Glucose 212 H 74-106 mg/dL Hemoglobin A1c 9.3 H <5.7 % A1C Calcium Level 8.4 L 8.7-10.4 mg/dL Total Bilirubin 0.3 0.2-1.0 mg/dL Aspartate Amino Transferase (AST) 64 H 13-40 U/L Alanine Aminotransferase (ALT) 55 H 7-40 U/L Alkaline Phosphatase 208 H 46-116 U/L Total Protein 6.2 5.7-8.2 g/dL Albumin 3.8 3.2-4.8 g/dL POC Glucose 305 H 441 *H 70-106 mg/dl Urine Color Light-yellow Yellow Urine Clarity Clear Clear Urine pH 5.5 5.0-9.0 Urine Specific [place] 1.020 1.001-1.035 Urine Protein Trace H Negative Urine Ketones Negative Negative Urine Blood 3+ H Negative /uL Urine Nitrite 1+ H Negative Urine Bilirubin Negative Negative Urine Urobilinogen Normal Negative mg/dL Urine Leukocyte Esterase Negative Negative /uL Urine RBC 22 0 - 4 /hpf Urine Microscopic WBC 9 H 0-5 /HPF Urine Squamous Epithelial Cells Mod <5 /hpf Urine Bacteria Few H None Seen /hpf Urine Glucose 4+ H Normal mg/dL Test 02/23/25 14:47 Range/Units White Blood Count 11.5 H 4.4-10.8 10^3/uL Red Blood Count 3.76 L 4.0-5.20 10^6/uL Hemoglobin 10.8 L 12.2-16.2 g/dL Hematocrit 33.7 L 36.0-46.0 % Mean Corpuscular Volume 89.6 80.0-100.0 fL Mean Corpuscular Hemoglobin 28.8 28.0-32.0 pg Mean Corpuscular Hemoglobin Concent 32.1 32.0-36.0 g/dL Red Cell Distribution Width 14.7 H 11.8-14.3 % Platelet Count 206 140-450 10^3/uL Mean Platelet Volume 8.7 6.9-10.8 fL Neutrophils (%) (Auto) 90.5 H 37.0-80.0 % Lymphocytes (%) (Auto) 5.2 L 10.0-50.0 % Monocytes (%) (Auto) 4.1 0.0-12.0 % Eosinophils (%) (Auto) 0.0 0.0-7.0 % Basophils (%) (Auto) 0.2 0.0-2.0 % Neutrophils # (Auto) 10.4 H 1.6-8.6 10 ^3/uL Lymphocytes # (Auto) 0.6 0.4-5.4 10 ^3/uL Monocytes # (Auto) 0.5 0-1.3 10 ^3/uL Eosinophils # (Auto) 0 0-0.8 10 ^3/uL Basophils # (Auto) 0 0-0.2 10 ^3/uL Nucleated Red Blood Cells 0.0 % Sodium Level 128 L 136-145 mmol/L Potassium Level 4.4 3.5-5.1 mmol/L Chloride Level 96 L 98-107 mmol/L Carbon Dioxide Level 21 20-31 mmol/L Anion Gap 11 5-15 Blood Urea Nitrogen 27 H 9-23 mg/dL Creatinine 1.40 H 0.550-1.02 mg/dL Glomerular Filtration Rate Calc 42 >90 mL/min BUN/Creatinine Ratio 19.3 10.0-20.0 Serum Glucose 524 *H 74-106 mg/dL Calcium Level 8.7 8.7-10.4 mg/dL Assessment Plan/Recommendation IMP: 1) Hemodynamically mediated acute kidney injury on CKD unknown baseline creat 2) Hx of renal transplant 3) Hx of Type 2 DM 4) HTN 5) Acute pyelonephritis- on IV abx REC: - Improvement in function of kidney allograft, downtrending serum creatinine noted. - Renal ultrasound - Serial chemistry panel - Strict I&O's - Blood pressure control - Glycemic control - Encourage oral intake of fluids - Avoidance of NSAIDs, and contrast studies if able - Resume home medications Prograf and cellcept - Will continue to follow. Thank you for the consultation Plan discussed with: Patient AMES,JESSICA SORIA Feb 25, 2025 13:07
--- NOTE | 2025-02-25 14:37 | DVH ---
EXAM: US RENAL TRANSPLANT Date: 02/25/2025 01:34 PM CLINICAL HISTORY: SAAD COMPARISON: None FINDINGS: Targeted sonographic evaluation of the [facility] was obtained utilizing grayscale and color Doppler imaging. Aorta: AP 1.7 cm TRV 1.6 cm PSV 79.0 cm/s (@ level of renal art.) Kidneys: ALLOGRAFT KIDNEY: 12.1 cm. EDV19.9 cm/s (<35cm/s = normal) PSV 66.5cm/s (<190cm/s = normal) EDV/PSV* 0.29cm/s (>0.2 = normal) RI 0.70 (<0.70 = normal) Renal PSV/Aorta PSV Ratio (RAR) 2.1 (3.0 or above = Stenosis) IMPRESSION: 1. No findings of renal stenosis.
[2025-02-25] MEDS: MYCOPHENOLATE 500 MG TAB PO SCH (21:43)
[2025-02-25] MEDS: TACROLIMUS 1 MG CAP PO SCH (21:43)
[2025-02-26] VITALS (7 sets, daily range): BP systolic 127–148; BP diastolic 58–70; PULSE 78–86; RESP 14–17; TEMP 97.4–98.6; O2SAT 95–99
[2025-02-26 05:34] LABS: Hematocrit 32.7 % (36.0-46.0); Hemoglobin 10.6 g/dL (12.2-16.2); Mean Corpuscular Hemoglobin 28.6 pg (28.0-32.0); Mean Corpuscular Volume 87.8 fL (80.0-100.0); Nucleated Red Blood Cells % 0.0 %
[2025-02-26 05:45] LABS: Alanine Aminotransferase 30 U/L (7-40); Albumin 3.8 g/dL (3.2-4.8); Anion Gap 9 (5-15); BUN/Creatinine Ratio 16.2 (10.0-20.0); Blood Urea Nitrogen 16 mg/dL (9-23); Calcium 8.8 mg/dL (8.7-10.4); Carbon Dioxide 24 mmol/L (20-31); Chloride 105 mmol/L (98-107); Potassium 3.7 mmol/L (3.5-5.1); Sodium 138 mmol/L (136-145); Total Protein 6.4 g/dL (5.7-8.2); Uric Acid 5.8 mg/dL (3.1-7.8)
[2025-02-26 05:54] LABS: Alkaline Phosphatase 159 U/L (46-116); Bilirubin, Total 0.2 mg/dL (0.2-1.0); Glucose 175 mg/dL (74-106)
--- NOTE | 2025-02-26 10:14 | DVHPN2 ---
Reviewed: Care Plan, H&P, Labs, Medications, Previous Orders, Radiology Changes from previous H/P or p: No Changes Objective Vitals Vital Signs Date Time Temp Pulse Resp B/P (MAP) Pulse Ox O2 Delivery O2 Flow Rate FiO2 02/26/25 09:14 136/68 02/26/25 09:13 98.0 78 14 97 98.0 02/26/25 08:00 Room Air* 0 21 Intake/Output Intake and Output 02/26/25 07:00 Intake Total 1490 ml Balance 1490 ml Intake Oral 1440 ml IV Total 50 ml # Voids 6 # Bowel Movements 3 Medications Current Medications Medications Dose Ordered Sig/Rhoda Route Start Time Stop Time Status Last Admin Dose Admin Sodium Chloride 10 ml Q8HR IV 02/23/25 22:00 02/26/25 05:13 10 ML Docusate Sodium 100 mg BIDPRN PRN PO 02/23/25 17:15 Acetaminophen 650 mg Q6HP PRN PO 02/23/25 17:15 02/26/25 00:45 650 MG Diagnostic Test (Pha) 1 strip ACHS 02/23/25 22:00 02/26/25 06:17 1 STRIP Dextrose 50 ml UD PRN IV 02/23/25 17:15 Ceftriaxone Sodium 50 ml @ 100 mls/hr DAILY@09 IV 02/25/25 09:00 02/26/25 09:13 100 MLS/HR Insulin Human Regular AC SC 02/24/25 17:00 02/26/25 06:15 8 UNITS Insulin Human Regular HS SC 02/24/25 22:00 02/25/25 21:43 10 UNITS Hydralazine HCl 10 mg Q6HP PRN IV 02/25/25 07:00 Nifedipine 60 mg BID PO 02/25/25 22:00 02/26/25 09:14 60 MG Prednisone 5 mg DAILY PO 02/26/25 10:00 02/26/25 09:13 5 MG Mycophenolate Mofetil 500 mg BID PO 02/25/25 22:00 02/26/25 09:14 500 MG Tacrolimus 3 mg BID PO 02/25/25 22:00 02/26/25 09:15 3 MG Laboratory Results Laboratory Tests 02/26/25 04:57 Chemistry Test 02/26/25 04:57 Albumin 3.8 g/dL (3.2-4.8) Calcium Level 8.8 mg/dL (8.7-10.4) Total Protein 6.4 g/dL (5.7-8.2) LFT Test 02/26/25 04:57 Alanine Aminotransferase (ALT) 30 U/L (7-40) Alkaline Phosphatase 159 U/L (46-116) H Aspartate Amino Transferase (AST) 13 U/L (13-40) Total Bilirubin 0.2 mg/dL (0.2-1.0) Urinalysis Test 02/23/25 15:50 Urine Color Light-yellow (Yellow) Urine Clarity Clear (Clear) Urine pH 5.5 (5.0-9.0) Urine Specific [place] 1.020 (1.001-1.035) Urine Protein Trace (Negative) H Urine Ketones Negative (Negative) Urine Blood 3+ /uL (Negative) H Urine Nitrite 1+ (Negative) H Urine Bilirubin Negative (Negative) Urine Urobilinogen Normal mg/dL (Negative) Urine Leukocyte Esterase Negative /uL (Negative) Urine RBC 22 /hpf (0 - 4) Urine Microscopic WBC 9 /HPF (0-5) H Urine Squamous Epithelial Cells Mod /hpf (<5) Urine Bacteria Few /hpf (None Seen) H Urine Glucose 4+ mg/dL (Normal) H Microbiology Microbiology Date/Time Source Procedure Growth Status 02/23/25 17:34 Blood Blood Culture - Preliminary NO GROWTH AFTER 48 HOURS OF INCUBATION. Resulted Labs and/or images reviewed: Labs reviewed by me, Image(s) reviewed by me Assessment/Plan Assessment/Plan Sepsis secondary to urinary tract infection: Blood cultures negative, urine cultures pending, continue Rocephin Acute hyperglycemia Uncontrolled diabetes with blood sugar 580: Aggressive insulin sliding scale A1c 9.3, patient's takes Humulin at home. Acute pyelonephritis SAAD on CKD Accelerated HTN: Nifedepine History of Renal transplant: Mycophenalate, Prednisone, Tacrolimus Time spent 50 minutes Advanced care planning time 20 minutes Patient is full code Eliceo Thomas [phone] at bedside CHRISSY Jay at bedside Plan discussed with: Patient My Orders Orders - ATIYA PAPPAS MD Procedure Category Date Status Time Communication Order ORDERS 02/25/25 Transmitted 10:12 Nifedipine Er PHA 02/25/25 In Process (Procardia Xl 22:00 Prednisone Tablet PHA 02/26/25 In Process 10:00 Mycophenolate Mofetil PHA 02/25/25 In Process (Cellcept) 22:00 Tacrolimus (Prograf) PHA 02/25/25 In Process 22:00 Communication Order ORDERS 02/26/25 Verified 10:05 Date of Service: Feb 26, 2025 Billing Provider: ATIYA PAPPAS MD Common Visit Codes: [id number] INP/OBS CARE(HIGH) ATIYA PAPPAS MD Feb 26, 2025 10:14
--- NOTE | 2025-02-26 12:14 | DVHPN2 ---
Progress Note Date Seen: Feb 26, 2025 Medical Necessity Reason Pt with a Central, PICC or Fol: No Subjective Patient reports: No new complaints, Feels better Objective vital signs Vital Sign Date Time Temp Pulse Resp B/P (MAP) Pulse Ox O2 Delivery O2 Flow Rate FiO2 02/26/25 09:14 136/68 02/26/25 09:13 98.0 78 14 97 98.0 02/26/25 08:00 Room Air* 0 21 Total Intake and Output 02/25/25 02/25/25 02/26/25 15:00 23:00 07:00 Intake Total 50 ml 600 ml 840 ml Balance 50 ml 600 ml 840 ml medications Current Medications Medications Dose Ordered Sig/Rhoda Route Start Time Stop Time Status Last Admin Dose Admin Sodium Chloride 10 ml Q8HR IV 02/23/25 22:00 02/26/25 05:13 10 ML Docusate Sodium 100 mg BIDPRN PRN PO 02/23/25 17:15 Acetaminophen 650 mg Q6HP PRN PO 02/23/25 17:15 02/26/25 00:45 650 MG Diagnostic Test (Pha) 1 strip ACHS 02/23/25 22:00 02/26/25 11:25 1 STRIP Dextrose 50 ml UD PRN IV 02/23/25 17:15 Ceftriaxone Sodium 50 ml @ 100 mls/hr DAILY@09 IV 02/25/25 09:00 02/26/25 09:13 100 MLS/HR Insulin Human Regular AC SC 02/24/25 17:00 02/26/25 11:25 12 UNITS Insulin Human Regular HS SC 02/24/25 22:00 02/25/25 21:43 10 UNITS Hydralazine HCl 10 mg Q6HP PRN IV 02/25/25 07:00 Nifedipine 60 mg BID PO 02/25/25 22:00 02/26/25 09:14 60 MG Prednisone 5 mg DAILY PO 02/26/25 10:00 02/26/25 09:13 5 MG Mycophenolate Mofetil 500 mg BID PO 02/25/25 22:00 02/26/25 09:14 500 MG Tacrolimus 3 mg BID PO 02/25/25 22:00 02/26/25 09:15 3 MG Examination Gen: Appears stated age, NAD Heart: RRR, normal S1 and S2 Lungs: Bilateral air entry, no rales Ext: No edema Neuro: alert and oriented x 4 laboratory and microbiology Laboratory Tests 02/26/25 04:57 Test 02/26/25 04:57 Range/Units Serum Glucose 175 H 74-106 mg/dL Microbiology Date/Time Source Procedure Growth Status 02/23/25 17:34 Blood Blood Culture - Preliminary NO GROWTH AFTER 48 HOURS OF INCUBATION. Resulted Labs and/or images reviewed: Labs reviewed by me Problem List/Assessment/Plan Problem List/Assessment/Plan IMP: 1) Hemodynamically mediated acute kidney injury on CKD unknown baseline creat 2) Hx of renal transplant 3) Hx of Type 2 DM 4) HTN 5) Acute pyelonephritis- on IV abx REC: - Stability in function of kidney allograft - Repeat chemistry panel in am - Strict I&O's - Blood pressure and glycemic control - Encourage oral intake of fluids - Avoidance of NSAIDs, and IV contrast studies if able - Continue Prograf and cellcept home dose - Will continue to follow Plan discussed with: Patient My Orders My Orders Orders - JESSICA AMES Procedure Category Date Status Time Renal Transplant 02/25/25 Resulted 13:07 Vitamin D, 25-Hydroxy LAB 02/26/25 In Process 04:00 Urinalysis LAB 02/25/25 Logged 18:13 Urine Sodium LAB 02/25/25 Logged 18:13 Urine Creatinine LAB 02/25/25 Logged 18:13 JESSICA AMES Feb 26, 2025 12:14
[2025-02-26 16:42] LABS: Urine Protein, UAD 1+ (Negative)
[2025-02-27] VITALS (7 sets, daily range): BP systolic 124–188; BP diastolic 58–108; PULSE 73–87; RESP 14–18; TEMP 97.4–98.9; O2SAT 96–98
[2025-02-27 07:23] LABS: Hematocrit 32.1 % (36.0-46.0); Hemoglobin 10.7 g/dL (12.2-16.2); Mean Corpuscular Hemoglobin 29.0 pg (28.0-32.0); Mean Corpuscular Volume 87.4 fL (80.0-100.0); Nucleated Red Blood Cells % 0.1 %
[2025-02-27 07:34] LABS: Alanine Aminotransferase 27 U/L (7-40); Anion Gap 10 (5-15); Blood Urea Nitrogen 15 mg/dL (9-23); Calcium 8.8 mg/dL (8.7-10.4); Carbon Dioxide 22 mmol/L (20-31); Chloride 106 mmol/L (98-107); Potassium 4.0 mmol/L (3.5-5.1); Sodium 138 mmol/L (136-145); Total Protein 6.6 g/dL (5.7-8.2)
[2025-02-27 07:35] LABS: Albumin 3.9 g/dL (3.2-4.8); BUN/Creatinine Ratio 12.9 (10.0-20.0)
[2025-02-27 07:37] LABS: Alkaline Phosphatase 153 U/L (46-116); Bilirubin, Total 0.2 mg/dL (0.2-1.0); Glucose 156 mg/dL (74-106)
--- NOTE | 2025-02-27 10:51 | DVHPN2 ---
Reviewed: Care Plan, H&P, Labs, Medications, Previous Orders, Radiology Changes from previous H/P or p: No Changes Objective Vitals Vital Signs Date Time Temp Pulse Resp B/P (MAP) Pulse Ox O2 Delivery O2 Flow Rate FiO2 02/27/25 10:02 147/74 02/27/25 08:57 97.4 77 14 98 97.4 02/26/25 20:00 Room Air* 0 21 Intake/Output Intake and Output 02/27/25 07:00 Intake Total 925 ml Balance 925 ml Intake Oral 875 ml IV Total 50 ml # Voids 5 # Bowel Movements 1 Medications Current Medications Medications Dose Ordered Sig/Rhoda Route Start Time Stop Time Status Last Admin Dose Admin Sodium Chloride 10 ml Q8HR IV 02/23/25 22:00 02/27/25 06:06 10 ML Docusate Sodium 100 mg BIDPRN PRN PO 02/23/25 17:15 Acetaminophen 650 mg Q6HP PRN PO 02/23/25 17:15 02/27/25 02:25 650 MG Diagnostic Test (Pha) 1 strip ACHS 02/23/25 22:00 02/27/25 06:06 1 STRIP Dextrose 50 ml UD PRN IV 02/23/25 17:15 Ceftriaxone Sodium 50 ml @ 100 mls/hr DAILY@09 IV 02/25/25 09:00 02/27/25 10:03 100 MLS/HR Insulin Human Regular AC SC 02/24/25 17:00 02/27/25 06:08 2 UNITS Insulin Human Regular HS SC 02/24/25 22:00 02/26/25 22:01 4 UNITS Hydralazine HCl 10 mg Q6HP PRN IV 02/25/25 07:00 Nifedipine 60 mg BID PO 02/25/25 22:00 02/27/25 10:02 60 MG Prednisone 5 mg DAILY PO 02/26/25 10:00 02/27/25 10:03 5 MG Mycophenolate Mofetil 500 mg BID PO 02/25/25 22:00 02/27/25 09:56 500 MG Tacrolimus 3 mg BID PO 02/25/25 22:00 02/27/25 10:03 3 MG Laboratory Results Laboratory Tests 02/27/25 06:01 Chemistry Test 02/27/25 06:01 Albumin 3.9 g/dL (3.2-4.8) Calcium Level 8.8 mg/dL (8.7-10.4) Total Protein 6.6 g/dL (5.7-8.2) LFT Test 02/27/25 06:01 Alanine Aminotransferase (ALT) 27 U/L (7-40) Alkaline Phosphatase 153 U/L (46-116) H Aspartate Amino Transferase (AST) 16 U/L (13-40) Total Bilirubin 0.2 mg/dL (0.2-1.0) Urinalysis Test 02/26/25 16:00 Urine Color Yellow (Yellow) Urine Clarity Clear (Clear) Urine pH 5.5 (5.0-9.0) Urine Specific [place] 1.017 (1.001-1.035) Urine Protein 1+ (Negative) H Urine Ketones Negative (Negative) Urine Blood Negative /uL (Negative) Urine Nitrite Negative (Negative) Urine Bilirubin Negative (Negative) Urine Urobilinogen Normal mg/dL (Negative) Urine Leukocyte Esterase Negative /uL (Negative) Urine RBC 3 /hpf (0 - 4) Urine Microscopic WBC 7 /HPF (0-5) H Urine Squamous Epithelial Cells Few /hpf (<5) Urine Bacteria Few /hpf (None Seen) H Urine Creatinine 128.08 mg/dL (30.0-125.0) H Urine Sodium 27 mmol/L (40-220) L Urine Glucose 4+ mg/dL (Normal) H Microbiology Microbiology Date/Time Source Procedure Growth Status 02/23/25 17:34 Blood Blood Culture - Preliminary NO GROWTH AFTER 72 HOURS OF INCUBATION. Resulted Labs and/or images reviewed: Labs reviewed by me, Image(s) reviewed by me Assessment/Plan Assessment/Plan Sepsis secondary to urinary tract infection: Blood cultures negative, urine cultures pending, continue Rocephin Acute hyperglycemia Uncontrolled diabetes with blood sugar 580: Aggressive insulin sliding scale A1c 9.3, patient's takes Humulin at home. Acute pyelonephritis SAAD on CKD Accelerated HTN: Nifedepine History of Renal transplant: Mycophenalate, Prednisone, Tacrolimus Time spent 50 minutes Advanced care planning time 20 minutes Patient is full code Examined through the help of cultured marble products maker Eliceo Thomas [phone] at bedside CHRISSY Kaminski at bedside Plan discussed with: Patient My Orders Orders - ATIYA PAPPAS MD Procedure Category Date Status Time Renal DIET 02/26/25 Transmitted Standard(2gna,3gk,Lopho) Lunch Urine Bacterial GABBI 02/26/25 In Process Culture 16:19 Date of Service: Feb 27, 2025 Billing Provider: ATIYA PAPPAS MD Common Visit Codes: [id number] INP/OBS CARE(HIGH) ATIYA PAPPAS MD Feb 27, 2025 10:51
--- NOTE | 2025-02-27 13:21 | DVHPN2 ---
Progress Note Date Seen: Feb 27, 2025 Medical Necessity Reason Pt with a Central, PICC or Fol: No Objective vital signs Vital Sign Date Time Temp Pulse Resp B/P (MAP) Pulse Ox O2 Delivery O2 Flow Rate FiO2 02/27/25 10:02 147/74 02/27/25 08:57 97.4 77 14 98 97.4 02/26/25 20:00 Room Air* 0 21 Total Intake and Output 02/26/25 02/26/25 02/27/25 15:00 23:00 07:00 Intake Total 50 ml 875 ml Balance 50 ml 875 ml medications Current Medications Medications Dose Ordered Sig/Rhoda Route Start Time Stop Time Status Last Admin Dose Admin Sodium Chloride 10 ml Q8HR IV 02/23/25 22:00 02/27/25 06:06 10 ML Docusate Sodium 100 mg BIDPRN PRN PO 02/23/25 17:15 Acetaminophen 650 mg Q6HP PRN PO 02/23/25 17:15 02/27/25 02:25 650 MG Diagnostic Test (Pha) 1 strip ACHS 02/23/25 22:00 02/27/25 12:11 1 STRIP Dextrose 50 ml UD PRN IV 02/23/25 17:15 Ceftriaxone Sodium 50 ml @ 100 mls/hr DAILY@09 IV 02/25/25 09:00 02/27/25 10:03 100 MLS/HR Insulin Human Regular AC SC 02/24/25 17:00 02/27/25 12:12 16 UNITS Insulin Human Regular HS SC 02/24/25 22:00 02/26/25 22:01 4 UNITS Hydralazine HCl 10 mg Q6HP PRN IV 02/25/25 07:00 Nifedipine 60 mg BID PO 02/25/25 22:00 02/27/25 10:02 60 MG Prednisone 5 mg DAILY PO 02/26/25 10:00 02/27/25 10:03 5 MG Mycophenolate Mofetil 500 mg BID PO 02/25/25 22:00 02/27/25 09:56 500 MG Tacrolimus 3 mg BID PO 02/25/25 22:00 02/27/25 10:03 3 MG Examination: GENERAL:Normal, CVS:Normal laboratory and microbiology Laboratory Tests 02/27/25 06:01 Test 02/27/25 06:01 Range/Units Serum Glucose 156 H 74-106 mg/dL Microbiology Date/Time Source Procedure Growth Status 02/23/25 17:34 Blood Blood Culture - Preliminary NO GROWTH AFTER 72 HOURS OF INCUBATION. Resulted Problem List/Assessment/Plan Problem List/Assessment/Plan Acute kidney injury kidney transplant uncontrolled Dm2 sepsis due to pyelonephritis hypertension improved renal function continue transplant meds avoid hypotension glycemic control as per primary team Plan discussed with: Patient BLAKE MELENDEZ MD Feb 27, 2025 13:21
[2025-02-27] MEDS: hydrALAZINE HCL 20 MG/ML VL IV PRN (16:38)
[2025-02-28 01:00] VITALS: BP 164/82; PULSE 80; RESP 16; TEMP 97.5; O2SAT 96
[2025-02-28 05:00] VITALS: BP 163/97; PULSE 79; RESP 17; TEMP 97.4; O2SAT 99
[2025-02-28 05:23] LABS: Hematocrit 34.4 % (36.0-46.0); Hemoglobin 11.3 g/dL (12.2-16.2); Mean Corpuscular Hemoglobin 28.8 pg (28.0-32.0); Mean Corpuscular Volume 88.0 fL (80.0-100.0); Nucleated Red Blood Cells % 0.1 %
[2025-02-28 05:57] LABS: Alanine Aminotransferase 27 U/L (7-40); Albumin 3.9 g/dL (3.2-4.8); Anion Gap 11 (5-15); Calcium 9.0 mg/dL (8.7-10.4); Carbon Dioxide 24 mmol/L (20-31); Chloride 105 mmol/L (98-107); Potassium 4.0 mmol/L (3.5-5.1); Sodium 140 mmol/L (136-145); Total Protein 6.9 g/dL (5.7-8.2)
[2025-02-28 05:58] LABS: Alkaline Phosphatase 144 U/L (46-116); Bilirubin, Total 0.2 mg/dL (0.2-1.0); Glucose 134 mg/dL (74-106)
[2025-02-28 06:09] LABS: BUN/Creatinine Ratio 14.1 (10.0-20.0); Blood Urea Nitrogen 14 mg/dL (9-23)
[2025-02-28 09:00] VITALS: BP 150/83; PULSE 82; RESP 16; TEMP 97.9; O2SAT 97
[2025-02-28] MEDS ORDERED: CIPR-173 PO (10:45)
--- NOTE | 2025-02-28 10:57 | DVHDS2 ---
Discharge Summary Date of Admission Feb 23, 2025 at 17:08 Date of Discharge: Feb 28, 2025 Admitting Diagnosis Altered mental status and confusion Wounds: None Labs/Diagnostic Data: Laboratory Results Test 02/28/25 06:07 02/28/25 04:51 02/26/25 16:00 02/26/25 04:57 POC Glucose 147 mg/dl (70-106) White Blood Count 7.1 10^3/uL (4.4-10.8) Red Blood Count 3.91 10^6/uL (4.0-5.20) Hemoglobin 11.3 g/dL (12.2-16.2) Hematocrit 34.4 % (36.0-46.0) Mean Corpuscular Volume 88.0 fL (80.0-100.0) Mean Corpuscular Hemoglobin 28.8 pg (28.0-32.0) Mean Corpuscular Hemoglobin Concent 32.7 g/dL (32.0-36.0) Red Cell Distribution Width 14.3 % (11.8-14.3) Platelet Count 343 10^3/uL (140-450) Mean Platelet Volume 7.5 fL (6.9-10.8) Neutrophils (%) (Auto) 66.3 % (37.0-80.0) Lymphocytes (%) (Auto) 24.5 % (10.0-50.0) Monocytes (%) (Auto) 6.4 % (0.0-12.0) Eosinophils (%) (Auto) 2.3 % (0.0-7.0) Basophils (%) (Auto) 0.5 % (0.0-2.0) Neutrophils # (Auto) 4.7 10 ^3/uL (1.6-8.6) Lymphocytes # (Auto) 1.7 10 ^3/uL (0.4-5.4) Monocytes # (Auto) 0.5 10 ^3/uL (0-1.3) Eosinophils # (Auto) 0.2 10 ^3/uL (0-0.8) Basophils # (Auto) 0 10 ^3/uL (0-0.2) Nucleated Red Blood Cells 0.1 % Sodium Level 140 mmol/L (136-145) Potassium Level 4.0 mmol/L (3.5-5.1) Chloride Level 105 mmol/L (98-107) Carbon Dioxide Level 24 mmol/L (20-31) Anion Gap 11 (5-15) Blood Urea Nitrogen 14 mg/dL (9-23) Creatinine 0.99 mg/dL (0.550-1.02) Glomerular Filtration Rate Calc 64 mL/min (>90) BUN/Creatinine Ratio 14.1 (10.0-20.0) Serum Glucose 134 mg/dL (74-106) Calcium Level 9.0 mg/dL (8.7-10.4) Total Bilirubin 0.2 mg/dL (0.2-1.0) Aspartate Amino Transferase (AST) 14 U/L (13-40) Alanine Aminotransferase (ALT) 27 U/L (7-40) Alkaline Phosphatase 144 U/L (46-116) Total Protein 6.9 g/dL (5.7-8.2) Albumin 3.9 g/dL (3.2-4.8) Urine Color Yellow (Yellow) Urine Clarity Clear (Clear) Urine pH 5.5 (5.0-9.0) Urine Specific [place] 1.017 (1.001-1.035) Urine Protein 1+ (Negative) Urine Ketones Negative (Negative) Urine Blood Negative /uL (Negative) Urine Nitrite Negative (Negative) Urine Bilirubin Negative (Negative) Urine Urobilinogen Normal mg/dL (Negative) Urine Leukocyte Esterase Negative /uL (Negative) Urine RBC 3 /hpf (0 - 4) Urine Microscopic WBC 7 /HPF (0-5) Urine Squamous Epithelial Cells Few /hpf (<5) Urine Bacteria Few /hpf (None Seen) Urine Creatinine 128.08 mg/dL (30.0-125.0) Urine Sodium 27 mmol/L (40-220) Urine Glucose 4+ mg/dL (Normal) Uric Acid 5.8 mg/dL (3.1-7.8) Vitamin D 25-Hydroxy 12.1 ng/mL (30.0-100) Test 02/24/25 05:40 Hemoglobin A1c 9.3 % A1C (<5.7) Other Laboratory Tests 02/28/25 04:51 Brief Hx & Hospital Course: 64-year-old female with a history of insulin-dependent diabetes history of renal transplant on tacrolimus history of recurrent urinary tract infections came in complaining of generalized weakness nausea. Found to have high blood sugars of 580 A1c 9.3 evidently uncontrolled diabetes patient takes Coumadin at home patient tells me she was not taking insulin for two days because abuse feeling nauseated found to have urinary infection treated with the Rocephin blood cultures negative urine cultures were mixed. Patient feels better without any symptoms at the present time stable vital signs and blood pressure and blood sugars under reasonable control being discharged home discussed with the patient's son William odell and patient being discharged back to previous home health. Prescription for antibiotic transmitted to pharmacy discussed discharge plan with the patient with the help of casualty insurance claim adjuster Consults/Reason for consult None Operations or Procedures None Condition at Discharge: Fair Final Diagnosis/Problems List Sepsis secondary to urinary tract infection: Blood cultures negative, urine cultures pending, continue Rocephin Acute hyperglycemia Uncontrolled diabetes with blood sugar 580: Aggressive insulin sliding scale A1c 9.3, patient's takes Humulin at home. Acute pyelonephritis SAAD on CKD Accelerated HTN: Nifedepine History of Renal transplant: Mycophenalate, Prednisone, Tacrolimus Discharge Disposition: Home with Health Services Discharge Instruct/Medications Diet: Consistent carbohydrate Activity: Light activity Follow Up/Referral: Resume all previous home medications Check your blood sugar 3 times a day and take insulin appropriately Follow up with your primary Dr in one week Medications: Antibiotic transmitted to pharmacy Scheduled Ciprofloxacin Hcl (Cipro), 1 TAB PO BID 39 (Time taken for discharge summary 39 minutes) Discharge Statement: "Patient was advised to return to the ER or call 911 if any headaches, dizziness, shortness of breath, chest pain, abdominal pain, bleeding, fevers, or worsening of medical condition. Patient was counseled about treatment plan, medications, possible side effects, patientverbalized understanding. All questions were answered to the best of my ability. This discharge took greater then 30 minutes in planning, reviewing documentation, counseling the patient, and discussing with other team members." ASSESSMENT ASSESSMENT Hospital Course Improved Assessment Sepsis secondary to urinary tract infection: Blood cultures negative, urine cultures pending, continue Rocephin Acute hyperglycemia Uncontrolled diabetes with blood sugar 580: Aggressive insulin sliding scale A1c 9.3, patient's takes Humulin at home. Acute pyelonephritis SAAD on CKD Accelerated HTN: Nifedepine History of Renal transplant: Mycophenalate, Prednisone, Tacrolimus Date of Service: Feb 28, 2025 Billing Provider: ATIYA PAPPAS MD Common Visit Codes: [id number] DISCH DAY >30min ATIYA PAPPAS MD Feb 28, 2025 10:57
[2025-02-28 13:00] VITALS: BP 162/84; PULSE 76; RESP 16; TEMP 97.5; O2SAT 96
== END 2025-02-28 15:55 | disposition home health service (06) | DRG 871 ==
LOC: ER 13:07 → OVERFLOW 17:08 → EAST 23:54
PROVIDERS: ADMIT Family Medicine; ATTEND Family Medicine
PROC: 05HB33Z Insertion of Infusion Device into Right Basilic Vein, Percutaneous Approach (ICD-10-PCS; principal; 2025-02-27)
PROC: B54MZZA Ultrasonography of Right Upper Extremity Veins, Guidance (ICD-10-PCS; 2025-02-27)
DX: A41.9 Sepsis, unspecified organism (principal); N17.0 Acute kidney failure with tubular necrosis; T86.19 Other complication of kidney transplant; N10 Acute pyelonephritis; E11.22 Type 2 diabetes mellitus with diabetic chronic kidney disease; E11.65 Type 2 diabetes mellitus with hyperglycemia; E78.5 Hyperlipidemia, unspecified; N18.9 Chronic kidney disease, unspecified; I12.9 Hypertensive chronic kidney disease with stage 1 through stage 4 chronic kidney disease, or unspecified chronic kidney disease; Z82.49 Family history of ischemic heart disease and other diseases of the circulatory system; Z88.5 Allergy status to narcotic agent; Z79.899 Other long term (current) drug therapy; Z83.3 Family history of diabetes mellitus; Y84.8 Other medical procedures as the cause of abnormal reaction of the patient, or of later complication, without mention of misadventure at the time of the procedure; Y92.89 Other specified places as the place of occurrence of the external cause
CPT/HCPCS: 36415; 74176; 76776; 80048; 80053; 81001; 82306; 82570; 82962; 83036; 84300; 84550; 85025; 87040; 87086; G0378; J1815; J2405; J2543; J7507; J7517